=== PATIENT | female | born 1950 | race Caucasian/White ===

== ENCOUNTER 2021-11-27 05:23 | Day surgery (SDC) | payer MEDICARE, OTHER, SELFPAY ==
[2021-11-27] VITALS (7 sets, daily range): BP systolic 90–150; BP diastolic 53–102; PULSE 73–86; RESP 16–18; TEMP 36.2–36.6; O2SAT 92–97; BMI 34.8
--- NOTE | 2021-11-27 | COLBX_PTH ---
PATIENT: FEDERICO BURTON LOC: EN U#:[id number] AGE/SX: 70/F ROOM: RE11/27/[address]: Dr. Rodrigo Dietz DO : 1950 BED: DIS: 11/27/2021 SPEC #: [id number] RECD: 11/27/21 13:45 STATUS: LUCIO JAMARCUS #: [id number] MICAH: 11/27/21 00:[address]: Rodrigo Dietz DEPT: SURGICAL PATHOLOGY RECD BY: aMson Cesar ENTERED: 11/28/21 08:01 SP TYPE: COLON BX OTHR DR: Dr. Chaya Hartley DO Tissues: A - Duodenum, NOS B - Gastric mucous membrane C - Esophageal mucous membrane Procedures: Special Stain Group II Surgery Specimen Level IV Alcian Blue/PAS (control) HEADER OPERATION: Colonoscopy, EGD with biopsy and dilation (MAC) PRE-OP DIAGNOSIS: GI bleed TISSUE SUBMITTED: A ? Duodenum biopsy, B ? Gastric antrum biopsy for histo and H. pylori, C ? Distal esophagus MICROSCOPIC DIAGNOSIS A. Duodenum, biopsy: Minimal nonspecific chronic inflammation. B. Gastric antrum, biopsy: Chronic gastritis. See comment. C. Distal esophagus, biopsy: Gastroesophageal junctional mucosa with chronic inflammation. Focal changes of reflux. Focal goblet cell metaplasia. No evidence of dysplasia. See comment. AM:faby 11/29/2021 COMMENT B. The results of immunohistochemistry for Helicobacter pylori will be reported separately ([id number]). C. Immunohistochemistry ([id number]) for P53 and Ki-67 will be performed and results will be reported separately. Alcian blue/PAS stain with matched control supports the above diagnosis. MICROSCOPIC DESCRIPTION Slides are reviewed. GROSS DESCRIPTION A - Received in fixative is one container labeled with the patient's name and designated duodenum biopsy. The specimen consists of multiple irregular fragments of light mendoza soft tissue that in aggregate measure 1.2 x 0.3 x 0.1 cm. The specimen is totally submitted in one cassette. B - Received in fixative is one container labeled with the patient's name and designated gastric antrum biopsy. The specimen consists of two irregular fragments of light mendoza soft tissue that in aggregate measure 0.5 x 0.4 x 0.1 cm. The specimen is totally submitted in one cassette. C - Received in fixative is one container labeled with the patient's name and designated distal esophagus biopsy. The specimen consists of multiple irregular fragments of light mendoza soft tissue that in aggregate measure 1 x 0.5 x 0.1 cm. The specimen is totally submitted in one cassette. / KERRY:faby 11/28/2021 TC:3 CPT: 37143 x3, 67118
[2021-11-27] MEDS: Lactated Ringers 1,000 ML 15 ML IV (05:50)
--- NOTE | 2021-11-27 06:30 | IMM_PTH ---
PATIENT: FEDERICO BURTON LOC: EN U#:[id number] AGE/SX: 70/F ROOM: RE11/27/[address]: Dr. Rodrigo Dietz DO : 1950 BED: DIS: 11/27/2021 SPEC #: [id number] RECD: 11/28/21 08:48 STATUS: LUCIO REZa #: [id number] MICAH: 11/27/21 06:[address]: Rodrigo Dietz DEPT: IMMUNOHISTOCHEMISTRY RECD BY: Destiny Villegas ENTERED: 11/28/21 08:48 SP TYPE: IMMUNO OTHR DR: Dr. Chaya Hartley DO Tissues: B - Stomach, NOS C - Esophagus, NOS Procedures: H Pylori (initial) P53 (initial) KI-67 (add) PHYSICIAN & INSTITUTION [place] [id number] SPECIMEN INFORMATION: Tissue Source: B ? Gastric antrum, C ? Distal esophagus Clinical Info: GI bleed Specimen Number: [id number] B & C CPT code: 13858 x2, 14935 METHODOLOGY: Deparaffinized sections of prefer/formalin-fixed tissue or PAP/DQ stained slides are incubated with monoclonal/polyclonal antibodies/oligonucleotide probes. Localization is made via biotin free immunoperoxidase method. Appropriate controls are performed and reacted as expected. Results on target cell population are indicated in the following table: RESULTS: ANTIBODY / CLONE RESULT Block B H Pylori (polyclonal) negative Block C P53 (DO-7) negative Ki-67 (30-9) positive, low These tests were developed and their performance characteristics determined by [facility]. They may not have been cleared or approved by the U.[place]. Food and Drug Administration. The FDA has determined that such clearance or approval is not necessary. The above immunohistochemical/dualISH markers are ordered and reviewed by the Pathologist. INTERPRETATION: B. Gastric antrum, biopsy: Negative for Helicobacter pylori organisms. C. Distal esophagus, biopsy: No evidence of dysplasia. AM:faby 11/30/2021
--- NOTE | 2021-11-27 06:42 | HP.PCM_ITS ---
History and Physical Date of Admission: 11/27/21 Details: SYDNEE BURTON, is a 70 F who presents to the office today for Evaluation of change in stool to include melena and fatigue. Sydnee became established with this clinic 3 as a result of a referral from her primary care for evaluation of change of stool to include blood seen on toilet paper. Onset with blood seen on tissue paper and has not progressed in severity since onset. With onset she additionally had some abdominal pain and constipation. Has changed he diet to exclude gluten. Bowel movements are typically hard fadia with abdominal cramping and urgency with up two or more BM a day. Feels she has more food intolerances in the last year where her mouth will become sticky. Takes Ocrapepsin E3 which she feels helps reflux and constipation. She has a known prolapse of pelvic organs, stage 3, which her primary examined but did not see irritations or ulcerations. Biochemical workup from primary physician included Ferritin elevated 205; CBC, vitamin B12, Vitamin D, TSH, magnesium, celiac profile, lipid profile, iron and TIBC and CMP all without abnormal results. Additional medical history include asthma, anemia, CAD, pelvic organ prolapse stage 3, atrial fibrillation (not actively treated). Last colonoscopy 2017 with results of diverticulosis with remaining exam unremarkable. ROS Const Constitutional: No fatigue, malaise, night sweats, weight change, sleep problems, abnormal sleep pattern or change in appetite ENT ENT: No difficulty swallowing, hoarseness or sore throat Cardio Cardiology: No chest pain at rest Gastro GI: No abdominal pain, belching, bloating, change in bowel habits, change in stool character, coffee ground emesis, constipation, cramping, diarrhea, heartburn, difficulty swallowing, feeling full early, excessive flatus, incontinent of stools, Vomiting blood/hematemesis, Blood in stool, loose stools, Black,tarry stools, nausea/dyspepsia, pain with swallowing, vomiting or other Skin Skin: No yellowing of the eye or itchy eyes Neuro Neurology: No behavioral changes Psych Psychiatric: No abnormal sleep pattern, No anxiety, No behavioral changes, No change in appetite and No depression Endo Endocrine: No fatigue or weight change Aller/Imm Allergy/Immunologic: No itchy eyes Marcelino/Lymp Hematologic/Lymphatic: No easy bleeding Exam Const General: cooperative and comfortable Nutritional Appearance: average body habitus and well nourished [facility] Head: normal to inspection Ears: hearing grossly normal bilaterally Nose: external nose normal Face and sinus: normal facial exam Mouth: oral mucosae normal Throat: posterior oropharynx normal Eyes General: appearance normal, both eyes and all related structures Neck Neck: normal visual inspection Chest Chest palpation & inspection: normal inspection of the chest and normal palpation of entire chest wall Resp Effort & Inspection: normal respiratory effort Auscultation: Bilateral: Clear to Auscultation Cardio Palpation: normal PMI Rate: regular rate Rhythm: regular rhythm GI Inspection: normal to inspection Auscultation: normal bowel sounds Percussion: normal to percussion Palpation: no hepatosplenomegaly Skin General: no rashes or lesions noted Neuro General: patient alert Extrem General: normal to inspection Psych Affect: normal affect Assessment and Plan Assessment and Plan (1) GI bleed: Status: Acute Orders: Orders: Colonoscopy Today EGD Today Plan - Dr. Wallace Friend, DO: She will need to undergo an upper lower endoscopy to evaluate upper and lower GI tract. The different diagnosis would be AVMs, upper GI bleed with rapid transit, diverticular, ischemic colitis, hemorrhoidal disease or stercoral ulcer. She will also need a CT angiography due to her history of age fibrillation. I have re-examined the patient. There are no clinical changes since date of exam.
--- NOTE | 2021-11-27 07:26 | OP.EGD_ITS ---
Patient Name: Sydnee Reeves Procedure Date: 11/27/2021 6:18 AM Date of : 1950 Age: 70 Procedure: Upper GI endoscopy Indications: Iron deficiency anemia, Dysphagia Providers: Rodrigo Dietz DO Referring MD: Chaya Hartley Do Medicines: Monitored Anesthesia Care Patient Profile: This is a 70 year old female. Refer to note in patient chart for documentation of history and physical. Patient has symptoms. Complications: No immediate complications. Procedure: Pre-Anesthesia Assessment: - Prior to the procedure, a History and Physical was performed, and patient medications and allergies were reviewed. The risks and benefits of the procedure and the sedation options and risks were discussed with the patient. All questions were answered and informed consent was obtained. Patient identification and proposed procedure were verified by the physician in the pre-procedure area. Mental Status Examination: alert and oriented. Airway Examination: normal oropharyngeal airway and neck mobility. Respiratory Examination: clear to auscultation. CV Examination: normal. Prophylactic Antibiotics: The patient does not require prophylactic antibiotics. Prior Anticoagulants: The patient has taken no previous anticoagulant or antiplatelet agents. ASA Grade Assessment: II - A patient with mild systemic disease. After reviewing the risks and benefits, the patient was deemed in satisfactory condition to undergo the procedure. The anesthesia plan was to use moderate sedation / analgesia (conscious sedation). Immediately prior to administration of medications, the patient was re-assessed for adequacy to receive sedatives. The heart rate, respiratory rate, oxygen saturations, blood pressure, adequacy of pulmonary ventilation, and response to care were monitored throughout the procedure. The physical status of the patient was re-assessed after the procedure. After obtaining informed consent, the endoscope was passed under direct vision. Throughout the procedure, the patient's blood pressure, pulse, and oxygen saturations were monitored continuously. The colonoscope was introduced through the mouth, and advanced to the second part of duodenum. The upper GI endoscopy was accomplished without difficulty. The patient tolerated the procedure well. Scope In: 6:47:21 AM Scope Out: 7:01:43 AM Total Procedure Duration Time 0 hours 14 minutes 22 seconds Findings: LA Grade A (one or more mucosal breaks less than 5 mm, not extending between tops of 2 mucosal folds) esophagitis with no bleeding was found 38 to 40 cm from the incisors. Biopsies were taken with a cold forceps for histology. Verification of patient identification for the specimen was done. Estimated blood loss was minimal. A moderate Schatzki ring was found in the lower third of the esophagus. A guidewire was placed and the scope was withdrawn. Dilation was performed with a Savary dilator with no resistance at 54 Fr. The dilation site was examined following endoscope reinsertion and showed moderate improvement in luminal narrowing. Estimated blood loss was minimal. Localized mildly erythematous mucosa without bleeding was found in the gastric antrum. Biopsies were taken with a cold forceps for histology. Verification of patient identification for the specimen was done. Estimated blood loss was minimal. There was a small sliding hiatal hernia seen along with multiple Christian's erosions. Localized nodular mucosa was found in the duodenal bulb. Biopsies were taken with a cold forceps for histology. Verification of patient identification for the specimen was done. Estimated blood loss was minimal. Few non-bleeding superficial duodenal ulcers with no stigmata of bleeding were found in the duodenal bulb. The largest lesion was 3 mm in largest dimension. There was also a duodenal stricture seen that the endoscope was able to transverse. Impression: - LA Grade A reflux esophagitis. Biopsied. - Moderate Schatzki ring. Dilated. - Erythematous mucosa in the antrum. Biopsied. - Nodular mucosa in the duodenal bulb. Biopsied. - Multiple non-bleeding duodenal ulcers with no stigmata of bleeding. Recommendation: - Discharge patient to home. - Resume previous diet. - Continue present medications. - Await pathology results. Procedure Code(s): --- Professional --- 09230, Esophagogastroduodenoscopy, flexible, transoral; with insertion of guide wire followed by passage of dilator(s) through esophagus over guide wire 94118, 59, Esophagogastroduodenoscopy, flexible, transoral; with biopsy, single or multiple CPT copyright 2017 [employer]. All rights reserved. The codes documented in this report are preliminary and upon golf course architect review may be revised to meet current compliance requirements. Rodrigo Dietz DO 11/27/2021 7:25:53 AM This report has been signed electronically. Number of Addenda: 1 Note Initiated On: 11/27/2021 6:18 AM Addendum Number: 1 Addendum Date: 04/20/2022 6:28:26 AM MAC was used as sedation for this procedure. Rodrigo Dietz DO 04/20/2022 6:28:30 AM This report has been signed electronically.
--- NOTE | 2021-11-27 07:26 | OP.CCLET_ITS ---
04/20/2022 Chaya Hartley Do Re : Upper GI endoscopy procedure for Sydnee Reeves Dear Odilia This procedure was performed on Saturday, November 27, 2021. My impressions and recommendations are as follows: Impressions : - LA Grade A reflux esophagitis. Biopsied. - Moderate Schatzki ring. Dilated. - Erythematous mucosa in the antrum. Biopsied. - Nodular mucosa in the duodenal bulb. Biopsied. - Multiple non-bleeding duodenal ulcers with no stigmata of bleeding. Recommendations : - Discharge patient to home. - Resume previous diet. - Continue present medications. - Await pathology results. My findings are described in the full procedure note, which is enclosed. If I can be of further assistance, please feel free to contact me at . Sincerely, Rodrigo Dietz, 11/27/2021 7:25:53 AM This report has been signed electronically.
--- NOTE | 2021-11-27 07:29 | OP.CCLET_ITS ---
04/20/2022 Chaya Hartley Do Re : Colonoscopy procedure for Sydnee Reeves Dear Odilia This procedure was performed on Saturday, November 27, 2021. My impressions and recommendations are as follows: Impressions : - Hemorrhoids found on perianal exam. - Diverticulosis in the recto-sigmoid colon, in the sigmoid colon and in the descending colon. - The examination was otherwise normal on direct and retroflexion views. - No specimens collected. Recommendations : - Discharge patient to home. - Resume previous diet. - Continue present medications. - Repeat colonoscopy in 5 years for surveillance. - Return to GI office. My findings are described in the full procedure note, which is enclosed. If I can be of further assistance, please feel free to contact me at . Sincerely, Rodrigo Dietz, 11/27/2021 7:28:33 AM This report has been signed electronically.
--- NOTE | 2021-11-27 07:29 | OP.COLON_ITS ---
Patient Name: Sydnee Reeves Procedure Date: 11/27/2021 7:02 AM Date of : 1950 Age: 70 Procedure: Colonoscopy Indications: Iron deficiency anemia Providers: Rodrigo Dietz DO Referring MD: Chaya Hratley Do Medicines: Monitored Anesthesia Care Patient Profile: This is a 70 year old female. Refer to note in patient chart for documentation of history and physical. Patient has symptoms. Last Colonoscopy: 5 years ago. Complications: No immediate complications. Procedure: Pre-Anesthesia Assessment: - Prior to the procedure, a History and Physical was performed, and patient medications and allergies were reviewed. The risks and benefits of the procedure and the sedation options and risks were discussed with the patient. All questions were answered and informed consent was obtained. Patient identification and proposed procedure were verified by the physician in the pre-procedure area. Mental Status Examination: alert and oriented. Airway Examination: normal oropharyngeal airway and neck mobility. Respiratory Examination: clear to auscultation. CV Examination: normal. Prophylactic Antibiotics: The patient does not require prophylactic antibiotics. Prior Anticoagulants: The patient has taken no previous anticoagulant or antiplatelet agents. ASA Grade Assessment: II - A patient with mild systemic disease. After reviewing the risks and benefits, the patient was deemed in satisfactory condition to undergo the procedure. The anesthesia plan was to use moderate sedation / analgesia (conscious sedation). Immediately prior to administration of medications, the patient was re-assessed for adequacy to receive sedatives. The heart rate, respiratory rate, oxygen saturations, blood pressure, adequacy of pulmonary ventilation, and response to care were monitored throughout the procedure. The physical status of the patient was re-assessed after the procedure. After I obtained informed consent, the scope was passed under direct vision. Throughout the procedure, the patient's blood pressure, pulse, and oxygen saturations were monitored continuously. The colonoscope was introduced through the anus and advanced to the cecum, identified by appendiceal orifice and ileocecal valve. The colonoscopy was performed without difficulty. The patient tolerated the procedure well. The quality of the bowel preparation was good. Scope In: 7:06:08 AM Scope Withdrawal Time 0 hours 9 minutes 41 seconds Scope Out: 7:18:54 AM Total Procedure Duration Time 0 hours 12 minutes 46 seconds Findings: Hemorrhoids were found on perianal exam. Multiple small and large-mouthed diverticula were found in the recto-sigmoid colon, sigmoid colon and descending colon. The exam was otherwise without abnormality on direct and retroflexion views. Impression: - Hemorrhoids found on perianal exam. - Diverticulosis in the recto-sigmoid colon, in the sigmoid colon and in the descending colon. - The examination was otherwise normal on direct and retroflexion views. - No specimens collected. Recommendation: - Discharge patient to home. - Resume previous diet. - Continue present medications. - Repeat colonoscopy in 5 years for surveillance. - Return to GI office. Procedure Code(s): --- Professional --- 46570, Colonoscopy, flexible; diagnostic, including collection of specimen(s) by brushing or washing, when performed (separate procedure) CPT copyright 2017 [employer]. All rights reserved. The codes documented in this report are preliminary and upon butter production supervisor review may be revised to meet current compliance requirements. Rodrigo Dietz DO 11/27/2021 7:28:33 AM This report has been signed electronically. Number of Addenda: 1 Note Initiated On: 11/27/2021 7:02 AM Addendum Number: 1 Addendum Date: 04/20/2022 6:28:37 AM MAC was used as sedation for this procedure. Rodrigo Dietz DO 04/20/2022 6:28:41 AM This report has been signed electronically.
== END 2021-11-27 08:22 | disposition home or self-care (01) ==
LOC: EN 05:24 → AC 05:26
PROVIDERS: PCP Internal Medicine; Referring Provider Internal Medicine; Visit Provider Internal Medicine Gastroenterology
PROC: 0DJD8ZZ Inspection of Lower Intestinal Tract, Via Natural or Artificial Opening Endoscopic (ICD-10-PCS; CPT 45378; principal; 2021-11-27 06:25)
DX: K29.50 Unspecified chronic gastritis without bleeding (principal); I48.91 Unspecified atrial fibrillation; K57.30 Diverticulosis of large intestine without perforation or abscess without bleeding; R13.10 Dysphagia, unspecified; K64.9 Unspecified hemorrhoids; D50.9 Iron deficiency anemia, unspecified; K21.01 Gastro-esophageal reflux disease with esophagitis, with bleeding; K26.9 Duodenal ulcer, unspecified as acute or chronic, without hemorrhage or perforation; J45.909 Unspecified asthma, uncomplicated; Z86.73 Personal history of transient ischemic attack (TIA), and cerebral infarction without residual deficits; I25.10 Atherosclerotic heart disease of native coronary artery without angina pectoris
CPT/HCPCS: 45378; 43248; 43239; 87426; 88305; 88313; 88341; 88342; J7120; C1769; J2405